=== PATIENT | male | born 1960 | race Hispanic/Latino ===

== ENCOUNTER 2018-10-22 00:09 | Emergency (ER) | payer SELFPAY ==
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
[2018-10-22 02:27] VITALS: BP 120/69; PULSE 73; RESP 16; TEMP 98.2
[2018-10-22 05:13] VITALS: O2SAT 96
--- NOTE | 2018-10-22 11:01 | RAD ---
Left knee three views HISTORY: Swelling and effusion. COMPARISON: None available. FINDINGS: Severe medial and patellofemoral compartment joint space narrowing. Prominent loose osteochondral bodies at the anterior and posterior aspect of the femorotibial joint space. Large suprapatellar joint effusion. Lateral subluxation of the patella. Impression: Severe medial and patellofemoral compartment joint space narrowing. Prominent loose osteochondral bodies at the anterior and posterior aspect of the femorotibial joint space. Large suprapatellar joint effusion. Lateral subluxation of the patella. If pain persists, consider correlation with MRI.
== END 2018-10-22 02:28 | disposition home or self-care (01) ==
LOC: C.ER 00:09
DX: M25.462 Effusion, left knee (principal)